=== PATIENT | female | born 1990 | race Caucasian/White ===

== ENCOUNTER 2019-01-09 11:38 | Emergency (ER) | payer BC ==
[~2019-01-09 11:38] MED LIST: Iopamidol 370 76% 100 ML VIAL ONE
[2019-01-09] MEDS ORDERED: Morphine 4 MG/ML VIAL ONE ×2 (12:12→13:34)
[2019-01-09] MEDS ORDERED: Ondansetron PF 4 MG/2 ML Vial ONE (12:12)
[2019-01-09 12:33] LABS: #Basophils 0.1 thou/uL (0.0-0.2); #Eosinphils 0.1 thou/uL (0.0-0.7); #Lymphocytes 1.2 thou/uL (1.20-3.40); #Monocytes 0.4 thou/uL (0.11-0.59); %Basophils 1.2 % (0.0-1.0); %Eosinophils 3.1 % (0.0-10.0); %Lymphocytes 24.8 % (21.0-51.0); %Monocytes 7.7 % (0.0-10.0); %Neutrophils 63.3 % (42.0-75.0); Hemoglobin 12.6 g/dL (12.0-16.0); Mean Corpuscular HGB CONC 34.1 g/dL (32.0-36.0); Mean Corpuscular Volume 90.9 fL (78.0-98.0); Mean Platelet Volume 9.3 fL (7.4-10.4); Platelet Count 202 thou/uL (130-400); RBC Distribution Width 11.7 % (11.5-14.5); Red Blood Cell (RBC) Count 4.05 mill/uL (4.20-5.40); White Blood Cell (WBC) Count 4.7 thou/uL (4.8-10.8)
[2019-01-09 12:52] LABS: ALT (SGPT) 42 U/L (8-55); AST (SGOT) 51 U/L (5-34); Albumin 4.4 g/dL (3.5-5.0); Alkaline Phosphatase 90 U/L (40-150); Anion Gap 17 mmol/L (10-20); BUN (Urea Nitrogen) 13 mg/dL (7.0-18.7); Bilirubin, Total 0.5 mg/dL (0.2-1.2); Calc. Creatinine Clearance 0 mL/min (70-130); Calcium 9.9 mg/dL (7.8-10.44); Carbon Dioxide 23 mmol/L (22-29); Chloride 104 mmol/L (98-107); Estimated GFR-MDRD Greater than 90; Globulin 3.1 g/dL (2.4-3.5); Glucose 94 mg/dL (70-105); Lipase 17 U/L (8-78); Protein, Total 7.5 g/dL (6.0-8.3); Sodium 140 mmol/L (136-145)
[2019-01-09 13:22] LABS: Bilirubin Negative (Negative); Blood, Urine Negative (Negative); Glucose, Urine (Dipstick) Negative (Negative); Leukocyte Negative (Negative); Nitrite Negative (Negative); Protein, Urine (Dipstick) Negative (Neg-Trace)
[2019-01-09 13:24] LABS: Clarity Hazy (Clear)
--- NOTE | 2019-01-09 15:56 | CT ---
EXAM: CT ABDOMEN AND PELVIS HISTORY: Abdominal pain. Laparoscopic endometrial ablation 5 days ago. COMPARISON: None. Procedure: Multiple contiguous axial images were obtained and a CT of the abdomen and pelvis with IV contrast. C oronal reformats were performed. FINDINGS: Lower Chest: Dependent atelectatic changes. Vessels: Normal caliber aorta. Heart: Normal size. No significant pericardial fluid. Abdomen: Portal vein:Patent Gallbladder: Surgically absent. [place] effect with dilatation of the intra and extra hepatic bilia ry system Liver: within normal limits. Pancreas: within normal limits. Spleen: within normal limits. Adrenals: within normal limits. Kidneys: Symmetric enhancement. No obstructive uropathy. Peritoneum: No ascites or free air, no fluid collection. Bowel: Limited evaluation due to technique. No evidence of bowel obstruction. Nondistended fluid-fill ed loops of small bowel are identified. Ileocecal junction is unremarkable. Normal caliber appendix. Scattered fecal material in a nondistended, nondilated colon., Mesentery and Retroperitoneum: No enlarged mesenteric or retroperitoneal lymph nodes. Abdominal Wall: Subcutaneous emphysema on the anterior inferior abdominal wall and anterior pelvis li aster due to recent laparoscopy. Subcutaneous emphysema is confined to the subcutaneous fat. Pelvis: Reproductive Organs: Uterus is surgically absent. There is a small amount of free fluid pelvis. Pelvis: No pelvic mass, lymphadenopathy or free air. Bladder: within normal limits. Bones: within normal limits. IMPRESSION: 1. No evidence of abscess in the abdomen or pelvis. 2. Anterior subcutaneous emphysema along the dependent portion of the subcutaneous fat likely iatroge clive. No evidence of a abdominal wall abscess. 3. Small amount of free fluid in the pelvis, nonspecific.
[2019-01-11 00:53] LABS: Chlamydia by PCR Not Detected (NotDetected); GC by PCR Not Detected (NotDetected)
== END 2019-01-09 16:55 | disposition home or self-care (01) ==
LOC: SCSER 11:38
DX: G89.18 Other acute postprocedural pain (principal); R10.9 Unspecified abdominal pain; F41.9 Anxiety disorder, unspecified; F32.9 Major depressive disorder, single episode, unspecified; Z79.899 Other long term (current) drug therapy
CPT/HCPCS: 74177; 80053; 81003; 83690; 85025; 87480; 87491; 87510; 87591; 87660; 96361; 96374; 96375; 96376; J1170; J2270; J2405; Q9967